=== PATIENT | female | born 1995 | race Caucasian/White ===

== ENCOUNTER 2017-03-06 14:02 | Emergency (ER) | payer SELFPAY ==
[~2017-03-06] VITALS: Ht 167.6 cm; Wt 87.2 kg
[2017-03-06 14:06] VITALS: BP 123/76; PULSE 83; RESP 16; TEMP 98.4; O2SAT 98
[2017-03-06] MEDS ORDERED: PENI500T PO (14:45)
--- NOTE | 2017-03-06 14:46 | PD ---
HPI Chief Complaint: ENT Complaint Time Seen by Provider: 14:42 Travel History International Travel<30 days: No Contact w/Intl Traveler<30days: No Traveled to known affect area: No History of Present Illness HPI 22-year-old female presents emergency department for evaluation of sore throat 2 days. Patient reports she has history of previous strep throat and the symptoms feel similar. She denies fever or chills. She denies difficulty swallowing although she has pain with swelling. She has no other symptoms. No alleviating factors. Mild severity. PFSH Past Medical History Medical History: Denies Significant Hx Influenza Vaccination: No ?: Unknown LMP: 02/20/17 Past Surgical History Surgical History: No Previous Surgery Social History Alcohol Use: Yes (COUPLE TIMES PER MONTH) Tobacco Use: No Substance Use: No Allergies-Medications (Allergen,Severity, Reaction): Coded Allergies: No Known Allergies (Unverified , 03/06/17) Reported Meds & Prescriptions Reported Meds & Active Scripts Active No Active Prescriptions or Reported Medications Review of Systems Except as stated in HPI: all other systems reviewed are Neg General / Constitutional: No: Fever Eyes: No: Visual changes HENT: Positive: Sore Throat, No: Headaches Cardiovascular: No: Chest Pain or Discomfort Respiratory: No: Shortness of Breath Gastrointestinal: No: Abdominal Pain Physical Exam Narrative GENERAL: Well-nourished, well-developed patient. SKIN: Focused skin assessment warm/dry. HEAD: Normocephalic. EYES: No scleral icterus. No injection or drainage. THROAT: Bilateral tonsillar swelling with exudate. Uvula is midline. NECK: Supple, trachea midline. No JVD or lymphadenopathy. CARDIOVASCULAR: Regular rate and rhythm without murmurs, gallops, or rubs. RESPIRATORY: Breath sounds equal bilaterally. No accessory muscle use. GASTROINTESTINAL: Abdomen soft, non-tender, nondistended. MUSCULOSKELETAL: No cyanosis, or edema. BACK: Nontender without obvious deformity. No CVA tenderness. Data Data Last Documented VS Vital Signs Date Time Temp Pulse Resp B/P Pulse Ox O2 Delivery O2 Flow Rate FiO2 03/06/17 14:06 98.4 83 16 123/76 98 MDM Medical Decision Making Medical Screen Exam Complete: Yes Emergency Medical Condition: Yes Differential Diagnosis Pharyngitis, viral pharyngitis, mononucleosis Narrative Course 22-year-old female with chief complaint sore throat 2 days. On physical exam patient has exudative tonsillitis. She will be treated for strep pharyngitis. She was instructed to follow up with her primary care doctor. She verbalizes understanding. Diagnosis Primary Impression: Strep pharyngitis Referrals: Primary Care Physician Scripts Penicillin V Potassium 500 Mg [id number] Mg PO Q12HR #20 TAB Prov:Dalila Nam 03/06/17 Disposition: 01 DISCHARGE HOME Condition: Stable Dalila Nam Mar 06, 2017 14:46
== END 2017-03-06 14:51 | disposition home or self-care (01) ==
LOC: PHEFT 14:02
DX: J02.0 Streptococcal pharyngitis (principal)
CPT/HCPCS: 99283

== ENCOUNTER 2017-05-14 21:52 | Emergency (ER) | payer SELFPAY ==
[~2017-05-14] VITALS: Ht 165.1 cm; Wt 90.2 kg
[~2017-05-14 21:52] MED LIST: PENI500T PO
[2017-05-14 21:55] VITALS: BP 124/67; PULSE 81; RESP 16; TEMP 98.8; O2SAT 98
[2017-05-14 22:18] LABS: BLOOD, URINE NEG (NEG); GLUCOSE,URINE NEG (NEG); KETONE, URINE TRACE mg/dL (NEG); NITRITE,URINE POS (NEG)
--- NOTE | 2017-05-14 22:26 | PD ---
HPI Chief Complaint: Complaint Time Seen by Provider: 22:19 Travel History International Travel<30 days: No Contact w/Intl Traveler<30days: No Traveled to known affect area: No History of Present Illness HPI 21-year-old female presents emergency department for dysuria, frequency, urgency for several weeks. She denies fever, chills, abdominal pain, back pain. Patient reports similar symptoms in the past with UTI. Symptoms are slightly relieved with [id number] Azo. Symptom severity is mild. PFSH Past Medical History Medical History: Denies Significant Hx Diminished Hearing: No Immunizations Current: Yes Tetanus Vaccination: > 5 Years Influenza Vaccination: No ?: Not LMP: 05-10-17 Past Surgical History Surgical History: No Previous Surgery Social History Alcohol Use: Yes (COUPLE TIMES PER MONTH) Tobacco Use: No Substance Use: No Allergies-Medications (Allergen,Severity, Reaction): Coded Allergies: No Known Allergies (Unverified , 05/14/17) Reported Meds & Prescriptions Reported Meds & Active Scripts Active No Active Prescriptions or Reported Medications Review of Systems Except as stated in HPI: all other systems reviewed are Neg Physical Exam Narrative GENERAL: Well-nourished, well-developed patient. SKIN: Focused skin assessment warm/dry. HEAD: Normocephalic. EYES: No scleral icterus. No injection or drainage. NECK: Supple, trachea midline. No JVD or lymphadenopathy. CARDIOVASCULAR: Regular rate and rhythm without murmurs, gallops, or rubs. RESPIRATORY: Breath sounds equal bilaterally. No accessory muscle use. GASTROINTESTINAL: Abdomen soft, non-tender, nondistended. MUSCULOSKELETAL: No cyanosis, or edema. BACK: Nontender without obvious deformity. No CVA tenderness. Data Data Last Documented VS Vital Signs Date Time Temp Pulse Resp B/P (MAP) Pulse Ox O2 Delivery O2 Flow Rate FiO2 05/14/17 21:55 98.8 81 16 124/67 (86) 98 Orders Orders Urinalysis - C+S If Indicated (05/14/17 22:07) Ed Urine Pregnancytest Poc (05/14/17 22:07) Labs Laboratory Tests Test 05/14/17 22:10 Urine pH 6.0 Urine Protein NEG mg/dL Urine Glucose (UA) NEG mg/dL Urine Ketones TRACE mg/dL Urine Occult Blood NEG Urine Nitrite POS Urine Bilirubin NEG Urine Leukocyte Esterase SMALL MDM Medical Decision Making Medical Screen Exam Complete: Yes Emergency Medical Condition: Yes Differential Diagnosis UTI, pyelonephritis, urethritis Narrative Course 21-year-old female presents emergency department for dysuria, frequency, urgency for several weeks. She denies fever, chills, abdominal pain, back pain. Patient reports only symptoms that began to pass. Symptoms are slightly relieved with [id number] Azo. Urine . See negative. UA positive for UTI. Patient be treated for UTI. Return precautions discussed. Patient verbalizes understanding and agrees to plan. Diagnosis Primary Impression: UTI (urinary tract infection) Qualified Codes: N30.00 - Acute cystitis without hematuria Referrals: Primary Care Physician Scripts Nitrofurantoin Monohydrate Macrocrystals (Macrobid) 100 Mg Cap 100 MG PO BID for Infection for 7 Days, #14 CAP 0 Refills Prov: Dalila Nam 05/14/17 Disposition: 01 DISCHARGE HOME Condition: Stable Dalila Nam May 14, 2017 22:26
[2017-05-14] MEDS ORDERED: MACR100C2 PO (22:32)
[2017-05-14 22:37] LABS: METHOD OF COLLECTION VOIDED; URINE COLOR YELLOW (YELLW/STRAW)
[2017-05-14 22:38] LABS: BACTERIA, URINE MANY /hpf; COMMENT (UR) CULTURE INDICATED; CULTURE IF INDICATED CULTURE INDICATED; RBC, URINE 0-3 /hpf (0-3); SQUAMOUS EPITHELIAL CELL URINE 0-5 /hpf (0-5)
== END 2017-05-14 22:41 | disposition home or self-care (01) ==
LOC: PHEFT 21:52
DX: N30.00 Acute cystitis without hematuria (principal)
CPT/HCPCS: 81001; 84703; 87077; 87086; 87186; 99283